=== PATIENT | female | born 1985 | race Caucasian/White ===

== ENCOUNTER 2018-02-08 11:47 | Day surgery (SDC) | payer OTHER ==
[~2018-02-08] VITALS: Ht 154.9 cm; Wt 90.2 kg
== END 2018-02-08 15:04 | disposition home or self-care (01) ==
LOC: ORSCSDS 11:47
PROVIDERS: Obstetrics & Gynecology
PROC: 0UT74ZZ Resection of Bilateral Fallopian Tubes, Percutaneous Endoscopic Approach (ICD-10-PCS; principal; 2018-02-08 13:15)
DX: Z30.2 Encounter for sterilization (principal); F41.1 Generalized anxiety disorder; F32.9 Major depressive disorder, single episode, unspecified
CPT/HCPCS: 88302; J0171; J1100; J1885; J2250; J2405; J3010; J7120

== ENCOUNTER 2020-03-17 23:51 | Emergency (ER) | payer OTHER ==
[~2020-03-17] VITALS: Ht 152.4 cm; Wt 94.8 kg
[2020-03-17 23:58] LABS: PO2 Arterial 116 mmHg (80-100); pH Blood Arterial 7.35 (7.35-7.45)
[2020-03-18] MEDS ORDERED: CITA20 PO (00:01)
[2020-03-18 00:11] LABS: BASOPHILS ABSOLUTE AUTO 0.08 K/mm3 (0.00-0.23); BASOPHILS PERCENT AUTO 0 % (0-2); EOSINOPHILS PERCENT AUTO 2 % (0-6); Hematocrit 39.3 % (33.0-51.0); Hemoglobin 12.6 g/dL (11.5-16.0); IMMATURE GRAN ABSOLUTE AUTO 0.11 K/mm3 (0.00-0.10); IMMATURE GRAN PERCENT AUTO 1 % (0-1); LYMPHOCYTES ABSOLUTE AUTO 3.64 K/mm3 (0.84-5.20); LYMPHOCYTES PERCENT AUTO 19 % (21-46); MONOCYTES ABSOLUTE AUTO 0.94 K/mm3 (0.16-1.47); MONOCYTES PERCENT AUTO 5 % (4-13); Mean Corpuscular HGB 28.4 pg (26.0-34.0); Mean Corpuscular HGB Conc 32.1 g/dL (31.5-36.5); Mean Corpuscular Volume 89 fL (80-100); Mean Platelet Volume 9.2 fL (9.1-12.4); NEUTROPHILS ABSOLUTE AUTO 14.07 K/mm3 (1.96-9.15); NEUTROPHILS PERCENT AUTO 74 % (41-73); Platelet Count 321 K/mm3 (150-400); RDW Coefficient Variation 14.3 % (11.7-14.2); RDW Standard Deviation 46.5 fL (35.1-46.3); Red Blood Cell Count 4.43 M/mm3 (3.80-5.20); White Blood Cell Count 19.14 K/mm3 (4.00-11.30)
[2020-03-18 00:25] LABS: International Normalized Ratio 0.96; Prothrombin Time Results 10.3 Sec (9.7-11.5)
[2020-03-18 00:34] LABS: Alanine Aminotransfer (ALT/SGP 86 U/L (12-78); Albumin, Blood 3.2 g/dL (3.4-5.0); Albumin/Globulin Ratio 0.9 (0.8-1.8); Alk Phos 90 U/L (50-136); Anion Gap 11 mmol/L (6-16); Aspartate Aminotrans (AST/SGOT 117 U/L (12-37); Beta HCG, Quantitative, Serum <1 mIU/mL (0-3); Bilirubin, Total 0.2 mg/dL (0.1-1.0); Blood Urea Nitrogen 6 mg/dL (8-24); Bun/Creatinine Ratio 8.6 (12.0-20.0); CO2, Blood 20 mmol/L (21-32); Calcium, Blood 8.1 mg/dL (8.5-10.1); Chloride, Blood 109 mmol/L (98-108); Ethanol (Alcohol), Blood, Med 154 mg/dL; Globulin, Blood 3.5 g/dL (2.2-4.0); Glomerular Filtration Rate >60 (60-); Glucose, Blood 134 mg/dL (70-99); Potassium, Blood 3.3 mmol/L (3.5-5.5); Sodium, Blood 140 mmol/L (136-145); Total Protein, Blood 6.7 g/dL (6.4-8.2)
[2020-03-18 01:18] LABS: Source, Urine Catheter
[2020-03-18 01:20] LABS: Bilirubin, Urine Neg (Neg); Blood, Urine 1+ (Neg); Glucose Qualitative, Urine Neg (Neg); Ketones, Urine 1+ (Neg); Leukocyte Esterase, Urine Neg (Neg); Nitrite, Urine Neg (Neg); Protein, Urine 2+ (Neg); Specific Gravity, Urine 1.015 (1.003-1.022); Urobilinogen, Urine NORM (Normal)
[2020-03-18 01:21] LABS: Appearance, Urine Clear (Clear); Color, Urine Yellow (P-Yellow)
[2020-03-18 01:26] LABS: Amorphous Light (0-Heavy); Bacteria Few /hpf; Hyaline Casts 0-2 /lpf (0-2); Red Blood Cells, Urine 0-2 /hpf (0-2); Squamous Epithelial Cells Not Seen /hpf (Few); White Blood Cells, Urine 0-2 /hpf (0-5)
== END 2020-03-18 01:15 | disposition short-term general hospital (02) ==
LOC: ER 23:51
PROVIDERS: Emergency Medicine
DX: S82.122 Displaced fracture of lateral condyle of left tibia (principal); S82.142B Displaced bicondylar fracture of left tibia, initial encounter for open fracture type I or II; S81.002A Unspecified open wound, left knee, initial encounter; S10.83XA Contusion of other specified part of neck, initial encounter; S60.512A Abrasion of left hand, initial encounter; S60.511A Abrasion of right hand, initial encounter; Z88.5 Allergy status to narcotic agent; Z79.899 Other long term (current) drug therapy; V89.2XXA Person injured in unspecified motor-vehicle accident, traffic, initial encounter
CPT/HCPCS: 29505; 36430; 36600; 51702; 70450; 71045; 71260; 72125; 72170; 73560-LT; 73610; 73700; 74177; 80053; 81001; 82803; 83690; 84702; 84703; 85025; 85610; 86850; 86900; 86901; 86920; 90471; 90714; 96361-59; 96365-59; 96375; 99285-25; G0480; J0690; J1170; J2250; J2405; J7030; P9016; Q9967

== ENCOUNTER 2020-05-21 00:18 | Day surgery (SDC) | payer OTHER ==
[~2020-05-21 00:18] MED LIST: CITA20 PO
== END 2020-05-21 22:45 | disposition home or self-care (01) ==
LOC: WOUND 00:18
DX: L97.822 Non-pressure chronic ulcer of other part of left lower leg with fat layer exposed (principal); F41.9 Anxiety disorder, unspecified; F32.9 Major depressive disorder, single episode, unspecified; Z87.891 Personal history of nicotine dependence; Z79.899 Other long term (current) drug therapy

== ENCOUNTER 2020-06-15 00:49 | Day surgery (SDC) | payer OTHER | END 2020-06-15 22:57 | disposition home or self-care (01) | LOC: WOUND 00:49 | DX: L97.822 Non-pressure chronic ulcer of other part of left lower leg with fat layer exposed (principal); F41.9 Anxiety disorder, unspecified; F32.9 Major depressive disorder, single episode, unspecified; E04.1 Nontoxic single thyroid nodule; Z87.891 Personal history of nicotine dependence ==